=== PATIENT | male | born 1945 | race Caucasian/White ===

== ENCOUNTER 2019-10-02 05:35 | Inpatient (IN) | payer OTHER, BC ==
[2019-09-16 09:07] LABS: HEMATOCRIT 43.9 % (42.0-52.0); HEMOGLOBIN 14.9 gm/dL (14.0-18.0); MCH 30.8 pg (26.0-34.0); MCV 90.6 fL (80.0-100.0); RBC 4.85 mil/uL (4.50-6.00); RDW 12.7 % (10.5-14.5); WBC 6.3 thou/uL (4.0-11.0)
[2019-09-16 09:12] LABS: URINE BILIRUBIN NEGATIVE (Negative); URINE BLOOD NEGATIVE (Negative); URINE CLARITY CLEAR; URINE COLOR YELLOW; URINE GLUCOSE-RANDOM* NEGATIVE (Negative); URINE KETONES NEGATIVE (Negative); URINE LEUKOCYTES-REFLEX NEGATIVE (Negative); URINE NITRITE-REFLEX NEGATIVE (Negative); URINE PROTEIN (DIPSTICK) NEGATIVE (Negative); URINE SPECIFIC GRAVITY >= 1.030 (1.005-1.035); URINE UROBILINOGEN 0.2 E.U./dl (0.2-1.0)
[2019-09-16 09:22] LABS: PROTIME 10.1 Seconds (9.3-11.4)
[2019-09-16 09:48] LABS: CALCIUM 9.7 mg/dL (8.5-10.1); CREATININE 1.4 mg/dL (0.7-1.3); POTASSIUM 4.6 mmol/L (3.5-5.1)
--- NOTE | 2019-09-17 08:41 | EKG ---
[place] [address] [facility] [place] [address] ELECTROCARDIOGRAM REPORT Name: ESTER LAWSON Room #: PRE IN Filomena#: [id number] Admission: Attend Phys: Evelio Garcia Discharge: Date of : 47 Report #: [id number] THIS REPORT FOR: //name// [facility] Test Date: 2019-09-16 Test Time: 08:47:41 Pat Name: ESTER LAWSON Department: Room: Gender: Investigation Division Captain: ashlee : 1945 Requested By: Evelio Saunders Order Number: [id number] MD: Shaji Streeter Measurements Intervals [place] Rate: 65 P: -29 GA: 214 QRS: 16 QRSD: 128 T: -6 QT: 410 QTc: 427 Interpretive Statements Sinus rhythm Borderline prolonged GA interval Right bundle branch block Inferior infarct, age indeterminate No previous ECG available for comparison Electronically Signed On 09-17-2019 8:41:07 COMPUTER FORENSICS EXAMINER by Shaji Streeter [email or web address] <ELECTRONICALLY SIGNED> By: Shaji Streeter MD 09/17/19 0841 [id number] MD TERELL Frazier
[2019-10-02] VITALS (9 sets, daily range): BP systolic 116–169; BP diastolic 66–105
[~2019-10-02] VITALS: Ht 177.8 cm; Wt 95.3 kg
[~2019-10-02 05:35] MED LIST: IBUPROFEN 200200 M1 PO; LEVO-T25 MCG PO
--- NOTE | 2019-10-02 20:15 | NUR ---
PT CARE ASSUMED AT 1640. A&Ox4. PT VITALS STABLE. STOOD UP WITH RN AND WALKED TO THE BATHROOM WITHOUT ANY PROBLEMS. GIANCARLO DRESSING IN PLACE AND INTACT. POLAR PACK IS NOT WRKING A NEW ONE HAS BEEN ORDERED A REPLACEMENT FROM [employer]. WILL BE HERE IN THE MORNING. MEANWHILE INCISION COOLED WITH ICE PACKS. PT. REFUSES ANY PAIN MEDICATION THAT ENDS WITH CODONE DUE TO A SEVERE ALLERGIC REACTION TO OXYCODONE IN THE PAST. TRAMADOL WAS ORDERED. IMMOBILIZER WAS WRAPPED TOO TIGHT AROUND THE ARM A RESULT THERE WAS SWELLING IMMOBILIZER LOOSENED. IS AT BEDSITE. BED IS IN LOW POSITION, LOCKED, WITH BED ALARM ON. SCD'S IN PLACE. FLUIDS RUNNING. IV PATENT WITH NO SWELLING OR REDNESS
[2019-10-03 05:27] LABS: HEMATOCRIT 35.3 % (42.0-52.0)
[2019-10-03 05:40] LABS: POTASSIUM 4.5 mmol/L (3.5-5.1)
--- NOTE | 2019-10-03 06:05 | NUR ---
ASSESSMENT COMPLETED.PER REPORT,THE IMMOBILIZER ON PT'S ARM WAS TIGHT SO AM NURSE LOOSENED IT.PT REFUSED THE IMMOBILIZER TO BE SECURED BACK.POLAR PACK WAS RESTARTED AFTER IT WAS FIXED.PT UP TO THE BR WITH SBA.IVF AND IV ABX GIVEN ORDERED.PT C/O PAIN,THIS NURSE TOLD PT THAT HE HAS HYDROCODONE,PT REF TO TAKE THE MED.PHYSCIAN NOTIFIED VIA ANSWERING SERVICE ORDER DC'D AND NEW ORDER NOTED.SCD,AVELINO MONTOYA IN PLACE.CALL LIGHT WITHIN REACH.
--- NOTE | 2019-10-03 06:11 | NUR ---
PT C/O PAIN ON HIS L SHOULDER,MANAGED WITH MED.PT UP TO THE BR WITH SBA.PT C/O SORE THROAT,PHYSICIAN NOTIFIED VIA ANSWERING SERVICE,NEW ORDER NOTED FOR CEPACOL.PT SLEPT OFF AND ON.PT LOOKING FORWARD TO BE DC TODAY.CALL LIGHT WITHIN REACH.
[2019-10-03 08:27] VITALS: BP 134/80
--- NOTE | 2019-10-03 08:39 | NUR ---
INITIAL ASSESSMENT: Pt evaluated for d/c planning needs. Reviewed chart and spoke with nurse, pt and spouse. Pt is alert and oriented. Pt lives in house with spouse and was independent with ADL's prior to admission. 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 Pt uses no DME and has not had home health in the past. Pt plans on returning home on d/c from hospital. Will remain available to assist as needed.
--- NOTE | 2019-10-03 09:09 | NUR ---
ORDERS RECEIVED FOR P.T. SPOKE WITH Pt WHO STATES HE HAS BEEN UP OUT OF BED MANY TIME ALREADY WITHOUT DIFFICULTY. Pt STATES HE DOES NOT THINK HE NEEDS A FORMAL P.T. EVAL FOR MOBILITY AND IS DECLINING ATTEMPTS. SPOUSE PRESENT AND SHE STATES SHE HAS SEEN HIM UP AND AGREES HE IS MOVING FINE. DISCUSSED WITH NURSE AND SHE IS IN AGREEMENT THAT Pt IS MOVING WITHOUT DIFFICULTY
--- NOTE | 2019-10-03 12:38 | NUR ---
PT A&OX4. AMBULATES WITH STAND BY ASSIST. IV INTACT IN L WRIST. R SHOULDER WITH IMMOBILIZER AND POLAR PACK. PT'S PAIN IS CONTROLLED TODAY WITH TRAMADOL. TOLERATING PO WELL. WILL CONT POC.
[2019-10-03 15:07] VITALS: BP 134/80
--- NOTE | 2019-10-03 16:05 | NUR ---
EARL BOYD CALLED FOR NEAR SYNCOPE. PT DID NOT LOSE PULSE. RESPONDING TO VERBAL STIMULI. PT ANSWERS QESTIONS APPROPRIATELY, FOLLOWING COMMANDS. C/O DIZZINESS. BG 63. DR WICK AT BEDSIDE TO ASSESS PT. DR MAYER CALLED PER DR WICK. FURTHER ORDERS GIVEN TO PRIMARY NURSE, CHINYERE.
[2019-10-03 16:36] LABS: ALBUMIN 3.3 g/dL (3.4-5.0); ANION GAP 6 mmol/L (7-16); BUN 21 mg/dL (7-18); CALCIUM 9.3 mg/dL (8.5-10.1); CHLORIDE 104 mmol/L (98-107); CO2 27 mmol/L (21-32); CREATININE 1.3 mg/dL (0.7-1.3); GLUCOSE 114 mg/dL (74-106); SGOT 16 U/L (15-37); SGPT 20 U/L (30-65); SODIUM 137 mmol/L (136-145); TOTAL BILIRUBIN 0.4 mg/dL (<0.1-1.0); TOTAL PROTEIN 6.8 g/dL (6.4-8.2); TROPONIN-I <0.06 ng/mL (<0.06)
[2019-10-03 16:49] LABS: ABSOLUTE NEUTROPHILS 10.6 thou/uL (1.4-8.2); BASOPHILS 0.3 % (0.0-2.0); EOSINOPHILS 0.2 % (0.0-3.0); HEMOGLOBIN 12.4 gm/dL (14.0-18.0); LYMPHOCYTES 18.4 % (24.0-44.0); MCH 30.6 pg (26.0-34.0); MCHC 33.5 g/dL (28.0-37.0); MCV 91.4 fL (80.0-100.0); MONOCYTES 8.6 % (1.0-8.0); PLATELET COUNT 179 thou/uL (150-400); POLYS 72.5 % (36.0-66.0); RBC 4.05 mil/uL (4.50-6.00); RDW 12.9 % (10.5-14.5); WBC 14.6 thou/uL (4.0-11.0)
[2019-10-03 17:56] LABS: URINE BILIRUBIN NEGATIVE (Negative); URINE BLOOD NEGATIVE (Negative); URINE CLARITY CLEAR; URINE COLOR YELLOW; URINE GLUCOSE-RANDOM* TRACE (Negative); URINE KETONES NEGATIVE (Negative); URINE LEUKOCYTES-REFLEX NEGATIVE (Negative); URINE NITRITE-REFLEX NEGATIVE (Negative); URINE PROTEIN (DIPSTICK) NEGATIVE (Negative); URINE UROBILINOGEN 0.2 E.U./dl (0.2-1.0)
--- NOTE | 2019-10-03 19:58 | NUR ---
PT A&OX4, IV INTACT IN L FA INFUSING NS @ 75/HR. VSS SEE FLOW. NO FURTHER EPISODES OF SYNCOPE NOTED. REPORT CALLED TO LILLIAN ARCE IN CCU. DR. RITTER WAS UPDATED OF PATIENT STATUS.
[2019-10-03 21:30] VITALS: BP 169/82
[2019-10-04 00:35] VITALS: BP 159/85
[2019-10-04 04:05] LABS: ABSOLUTE NEUTROPHILS 8.6 thou/uL (1.4-8.2); BASOPHILS 0.4 % (0.0-2.0); EOSINOPHILS 0.7 % (0.0-3.0); HEMOGLOBIN 11.9 gm/dL (14.0-18.0); LYMPHOCYTES 15.9 % (24.0-44.0); MCH 30.8 pg (26.0-34.0); MCV 90.7 fL (80.0-100.0); MONOCYTES 8.7 % (1.0-8.0); PLATELET COUNT 168 thou/uL (150-400); POLYS 74.3 % (36.0-66.0); RBC 3.86 mil/uL (4.50-6.00); RDW 12.7 % (10.5-14.5); WBC 11.6 thou/uL (4.0-11.0)
[2019-10-04 04:34] LABS: ANION GAP 8 mmol/L (7-16); BUN 18 mg/dL (7-18); CALCIUM 8.5 mg/dL (8.5-10.1); CHLORIDE 101 mmol/L (98-107); CHOLESTEROL 126 mg/dL (<200); CO2 28 mmol/L (21-32); CREATININE 1.2 mg/dL (0.7-1.3); GLUCOSE 105 mg/dL (74-106); HDL CHOLESTEROL 52 mg/dL (>40); LDL CHOLESTEROL 58 mg/dL (<100); MAGNESIUM 1.8 mg/dL (1.8-2.4); PHOSPHORUS 2.7 mg/dL (2.5-4.9); SGOT 13 U/L (15-37); SGPT 13 U/L (30-65); SODIUM 137 mmol/L (136-145); TC:HDL 2.4 Ratio (Not establshd); TOTAL BILIRUBIN 0.7 mg/dL (<0.1-1.0); TOTAL PROTEIN 6.5 g/dL (6.4-8.2); TRIGLYCERIDE 84 mg/dL (<150); TROPONIN-I <0.06 ng/mL (<0.06); VLDL 17 mg/dL (<40)
[2019-10-04 04:45] VITALS: BP 145/79
--- NOTE | 2019-10-04 05:13 | NUR ---
ASSUMED PT CARE ON UNIT AROUND 2129. PT VSS WITH NO C/O N/V/D. PT C/O PAIN TO RIGHT SHOULDER/ARM. PAIN MEDICATION GIVEN PER ORDER. PT ENCOURAGED TO TAKE SMALL BREAKS IN BETWEEN ACTIVITIES TO AVOID GETTING LIGHT-HEADED. PT SLEPT THRU NIGHT WITH MINIMAL INTERRUPTIONS. WILL CONTINUE TO MONITOR PER POC.
[2019-10-04 08:00] VITALS: BP 154/81
[2019-10-04] MEDS ORDERED: KEFLEX500 M2 PO (08:12)
[2019-10-04] MEDS ORDERED: AZITHROMYCIN500 MG PO (08:12)
[2019-10-04 10:02] VITALS: BP 134/80
--- NOTE | 2019-10-04 10:15 | NUR ---
DR. TREVINO HERE; PATIENT TO BE DISCHARGED AFTER IV ZITHROMAX. SR W/BBB PER TELE. AT BEDSIDE. DENIES PAIN. ASST TO BR FOR BM. WILL CONTINUE TO FOLLOW.
--- NOTE | 2019-10-04 10:30 | O ---
[facility] [place] [address] OPERATIVE REPORT Name: ESTER LAWSON Dolores Room #: 203-P [facility] IN M.R.#: [id number] Admission: 10/02/19 Attend Phys: Evelio Garcia Discharge: Date of : 47 Report #: [id number] THIS REPORT FOR: //name// CC: Evelio BRIAN Physician staff DATE OF SERVICE: 10/02/2019 PREOPERATIVE DIAGNOSES: Right shoulder pain, osteoarthritis, biceps tendinopathy. POSTOPERATIVE DIAGNOSES: Right shoulder pain, osteoarthritis, biceps tendinopathy. PROCEDURES PERFORMED: Right total shoulder arthroplasty with open biceps tenodesis. SURGEON: Evelio Saunders MD. HEALTH INFORMATION CODER: Nurys Floyd PA-C. ANESTHESIA: General with preoperative ultrasound-guided interscalene block. FLUIDS: 800 mL of crystalloid. ESTIMATED BLOOD LOSS: Approximately 50 mL. IMPLANTS UTILIZED: [employer] Unite size 12 stem, 135 degree proximal body, 48 x 18 eccentric humeral head with a 44 mm [place] Peg Glenoid. DESCRIPTION OF PROCEDURE: After proper identification of the patient and operative site in preoperative holding area, the operative site was signed by myself. Prophylactic antibiotics were given. The patient was elected to receive an interscalene block after reviewing the risks, benefits, alternatives and potential complications with anesthesia. After a satisfactory block, the patient was brought back to the operative suite after induction of satisfactory general anesthesia. The patient's right shoulder was examined. Range of motion was limited, which was comparable to the preoperative assessment. He was carefully positioned in the beach chair position with head of bed elevated approximately 40 degrees. Right shoulder was sterilely prepped and draped in usual manner. Final skin draping was with Ioban. A [employer] limb positioning system was utilized throughout the entire procedure. Anterior deltopectoral approach was planned. Skin was incised sharply. Full thickness skin flaps were developed. Cephalic vein was identified. Deltopectoral interval was opened. Subdeltoid space was created bluntly. A Freire-Deltoid [facility] [address] [place] [address] OPERATIVE REPORT Name: ESTER LAWSON Room #: 203-P [facility] IN M.R.#: [id number] Admission: 10/02/19 Attend Phys: Evelio Garcia Discharge: Date of : 47 Report #: [id number] retractor was utilized. At this point, the biceps tendon was tenodesed to the undersurface of the pectoralis major. This was followed proximally. Partial thickness tearing and tendinopathy was noted within the bicipital groove. Small spurs were appreciated about the groove. Anterior circumflex vessels were identified, ligated, and cauterized. Rotator interval was opened. A lesser tuberosity osteotomy was performed and a small portion of the lesser tuberosity was attached to the subscapularis. Subscapularis was carefully released circumferentially. Axillary nerve was identified and protected throughout the entire procedure. Anterior capsule was carefully excised. Extensive arthrosis and peripheral spurring about the humeral head was noted. This was removed using a 135 mm degree guide. Humeral head osteotomy was performed in approximately 20 degrees of retroversion. Rotator cuff was otherwise intact. Peripheral osteophytes were carefully removed. Capsule was released off the inferior humerus. At this point, the canal was reamed up to a size 12 stem. Proximal broach was utilized and a trial was inserted. Protection plate was applied and then attention was divided to the glenoid side. Remaining biceps tendon and very thickened degenerative tearing of the labrum was excised circumferentially. Capsule was released inferiorly off the glenoid surface with great care taken to identify and protect the axillary nerve. After there was adequate soft tissue releases and exposure, humeral head was externally rotated and adducted. There was excellent glenoid visualization. A guide pin was placed using a 44+3 guide pin position that was verified by palpation as well. Glenoid face was carefully reamed with more of the high side reamed. The patient had very thickened subchondral bone noted on his preoperative imaging studies, which corresponded with the intraoperative findings. After satisfactory glenoid reaming, step drill was utilized. This bone graft was then saved and applied to the implant later during the procedure. Next, the peripheral peg guide was utilized. Derotation pegs were used after each of these was drilled. They were all contained. This was removed, thoroughly irrigated with antibiotic irrigant and the trial implant was able to be fully seated and had excellent fixation and fit as well as position within the glenoid. This was removed. The glenoid was again irrigated. FloSeal was utilized. Bone graft was placed on the implant and cement was prepared on the back table. FloSeal was irrigated out. All peripheral pegs were contained. Peripheral pegs were then cemented under pressurization with a Tuohy syringe. The implant was carefully impacted into position with the central peg bone grafted. This was held firmly in place until the cement was cured. This was well positioned and secured. Next, the humerus was exposed. A 48 x 18 mm eccentric humeral head provided the best overall fit and recreation of the proximal humeral anatomy. This had excellent posterior translation of approximately 50%. Trial implants were removed. Humerus was irrigated. The [employer] Unite brosteotome was utilized. Four drill holes were placed within the anterior cortex where #2 FiberWire was passed. The implant was assembled on the back table and the inferior 2 sutures were wrapped around this as it was carefully impacted into position. Next, a 48 x 18 eccentric head was rotated in the appropriate position, carefully impacted. There was excellent fixation on [facility] [address] [place] [address] OPERATIVE REPORT Name: ESTER LAWSON Room #: 203-P AD[facility] IN M.R.#: [id number] Admission: 10/02/19 Attend Phys: Evelio Garcia Discharge: Date of : 47 Report #: [id number] the humeral side. This was reduced. Subscapularis was repaired with modified Baljit-Rufus technique using four #2 FiberWires. The patient could easily be externally rotated 40 degrees without any undue tension on the repair construct. Joint was again thoroughly irrigated with antibiotic irrigant. One gram vancomycin powder was utilized, half at deep, half at more superficial. #1 Vicryl was used to close deltopectoral interval, 2-0 Vicryl for the subcutaneous tissues followed by running subcuticular Monocryl with Dermabond applied. A sterile dressing and Aquacel was applied. He was placed in a sling and abduction pillow. Qualified certified medical assistant utilized throughout the entire procedure to aid in patient limb positioning, visualization and retraction of soft tissues, instrument passage, closure and sling and dressing application. The patient will be immobilized in a sling for 4 weeks postoperatively. <ELECTRONICALLY SIGNED> By: Evelio Saunders MD 10/04/19 1030 0949 1009 Evelio Saunders MD /pauline
--- NOTE | 2019-10-07 12:58 | EKG ---
[address] [place] [address] ELECTROCARDIOGRAM REPORT Name: ESTER LAWSON Room #: 203-P [facility] IN M.R.#: [id number] Admission: 10/02/19 Attend Phys: Evelio Garcia Discharge: 10/04/19 Date of : 47 Report #: [id number] THIS REPORT FOR: //name// [facility] Test Date: 2019-10-03 Test Time: 16:06:06 Pat Name: ESTER LAWSON Department: Room: [facility] Gender: M Manager Of Exhibitions And Collections: Porfirio GRECO : 1945 Requested By: Abimael Chambers Order Number: [id number] MD: Shaji Streeter Measurements Intervals [place] Rate: 78 P: 39 UT: 219 QRS: -3 QRSD: 133 T: 4 QT: 399 QTc: 455 Interpretive Statements Sinus rhythm Borderline prolonged UT interval Right bundle branch block Compared to ECG 09/16/2019 08:47:41 Electronically Signed On 10-07-2019 12:58:03 EDGING MACHINE FEEDER by Shaji Streeter [email or web address] <ELECTRONICALLY SIGNED> By: Shaji Streeter MD 10/07/19 1258 160 05 Shaji Streeter MD /AUDREY
== END 2019-10-04 11:20 | disposition home or self-care (01) | DRG 483 ==
LOC: TBA 05:35 → 4S 05:35 → PRE 07:33 → 4S 10:44 → PRE 13:37 → 2N 10-03 21:19 → ENTRNSPT 10-04 10:58 → EDTRNSPTSTS 10-04 11:17 → 2N 10-04 11:20
PROVIDERS: Emergency Medicine; Orthopaedic Surgery Sports Medicine; Physician Assistant Surgical; ADMIT Internal Medicine
PROC: 0RRJ0JZ Replacement of Right Shoulder Joint with Synthetic Substitute, Open Approach (ICD-10-PCS; principal; 2019-10-02)
PROC: 0PUC07Z Supplement Right Humeral Head with Autologous Tissue Substitute, Open Approach (ICD-10-PCS; principal; 2019-10-02)
DX: M19.011 Primary osteoarthritis, right shoulder (principal); J18.1 Lobar pneumonia, unspecified organism; M75.21 Bicipital tendinitis, right shoulder; E03.9 Hypothyroidism, unspecified; D64.9 Anemia, unspecified; E16.2 Hypoglycemia, unspecified; D72.829 Elevated white blood cell count, unspecified; K21.9 Gastro-esophageal reflux disease without esophagitis; I10 Essential (primary) hypertension; E66.9 Obesity, unspecified; M75.111 Incomplete rotator cuff tear or rupture of right shoulder, not specified as traumatic; Z88.6 Allergy status to analgesic agent; Z79.899 Other long term (current) drug therapy; Z82.49 Family history of ischemic heart disease and other diseases of the circulatory system; Z68.30 Body mass index [BMI] 30.0-30.9, adult; R55 Syncope and collapse
CPT/HCPCS: 10081; 10102; 50010; 50101; 50172; 50386; 50417; 50697; 50733; 50935; 51320; 51751; 52138; 52256; 53000; 53078; 54118; 55430; 56521; 56524; 56525; 56526; 56530; 57095; 57103; 62110; 62900; 65060; 70005

== ENCOUNTER → 2020-10-23 | Outpatient (CLI) | payer OTHER, BC ==
[~2020-10-23] VITALS: Ht 177.8 cm; Wt 88.5 kg
[~2020-10-23] MED LIST changes: +AZITHROMYCIN500 MG PO; +KEFLEX500 M2 PO
[2020-10-23 09:01] LABS: URINE BILIRUBIN NEGATIVE (Negative); URINE BLOOD NEGATIVE (Negative); URINE CLARITY CLEAR; URINE COLOR YELLOW; URINE GLUCOSE-RANDOM* NEGATIVE (Negative); URINE KETONES NEGATIVE (Negative); URINE LEUKOCYTES-REFLEX NEGATIVE (Negative); URINE NITRITE-REFLEX NEGATIVE (Negative); URINE PROTEIN (DIPSTICK) 1+ (Negative); URINE SPECIFIC GRAVITY >= 1.030 (1.005-1.035)
[2020-10-23 09:09] LABS: HEMATOCRIT 37.8 % (42.0-52.0); MCHC 34.4 g/dL (28.0-37.0); RBC 4.19 mil/uL (4.50-6.00); WBC 5.8 thou/uL (4.0-11.0)
[2020-10-23 09:13] LABS: CALCIUM 8.8 mg/dL (8.5-10.1); CREATININE 1.3 mg/dL (0.7-1.3); POTASSIUM 3.9 mmol/L (3.5-5.1)
[2020-10-23 09:16] LABS: PROTIME 9.6 Seconds (9.3-11.4)
[2020-10-23 09:30] LABS: CASTS None Seen /LPF (None Seen); MUCUS >6 Heavy strn/LPF (None Seen); SQUAMOUS 0-3 Few /LPF (0-3); URINE WBC-REFLEX None Seen /HPF (0-5)
[2020-10-23 09:31] LABS: BACTERIA-REFLEX None Seen /HPF (None Seen); CALCIUM OXALATE 0-3 Few /LPF (None Seen); URINE RBC None Seen /HPF (0-2)
--- NOTE | 2020-10-23 10:34 | EKG ---
[address] [employer] [address] ELECTROCARDIOGRAM REPORT Name: LULUESTERKEI SEGUNDO Room #: PRE IN Mis#: [id number] Admission: Attend Phys: Evelio Garcia Discharge: Date of : 47 Report #: [id number] [facility] Test Date: 2020-10-23 Test Time: 09:00:19 Pat Name: ESTER LAWSON Department: Room: Gender: M Managing Cognitive Engineer: Vero GUILLEN : 1945 Requested By: Evelio Saunders Order Number: [id number] MD: Ronnell Bird Measurements Intervals [place] Rate: 65 P: 12 RI: 208 QRS: 7 QRSD: 114 T: 0 QT: 409 QTc: 426 Interpretive Statements Sinus rhythm Inferior infarct, old Minimal ST elevation, anterior leads Compared to ECG 10/03/2019 16:06:06 Myocardial infarct finding now present ST (T wave) deviation now present Right bundle-branch block no longer present Electronically Signed On 10-23-2020 10:34:03 VEHICLE TRIMMER by Ronnell Bird [email or web address] <ELECTRONICALLY SIGNED> By: Ronnell Bird MD, [facility] 10/23/20 1034 09 9 Ronnell Bird MD, [facility] /EPI
== END ==
LOC: PAC 09:00 → PRE 10-28 08:08 → EDSTATUS 10-28 15:45
PROVIDERS: ATTEND Orthopaedic Surgery Sports Medicine
DX: Z01.818 Encounter for other preprocedural examination (principal); I49.9 Cardiac arrhythmia, unspecified

== ENCOUNTER → 2020-10-23 | Outpatient (CLI) | payer OTHER, BC | LOC: LAB 09:09 | PROVIDERS: ATTEND Orthopaedic Surgery Sports Medicine | DX: U07.1 COVID-19 (principal) ==